=== PATIENT | female | born 1975 | race Caucasian/White ===

== ENCOUNTER → 2022-09-05 07:42 | Outpatient (REF) | payer OTHER, SELFPAY ==
--- NOTE | 2022-09-05 07:50 | CA_ITS ---
Transthoracic Echocardiogram Patient (Last, First, Middle): Keisha Lazaro, Gender: Female Date of : 1975 Age: 46 Procedure Date: 09/05/2022 Procedure Type: Transthoracic Echocardiogram Location: OP Height: 157.48 cm Weight: 58.97 kg BSA: 1.59 m2 Heart Rate: 74 bpm BP: 112 / 60 mmHg Roll Up Guider Operator: SB Referring MD: Jorge Chen MD Dental Instrument Maker: Burton Bullock MD Symptoms: R06.00 PAROXYSMAL NOCTURNAL DYSPNEA Study Quality: Adequate ECG Rhythm: Sinus Conclusions: - Essentially normal study Findings Procedure Information The quality of the study was technically difficult. The study quality is limited by lung artifact. Left Ventricle Normal left ventricular size, thickness, and systolic function. The visually estimated ejection fraction is between 60-65%. Spectral Doppler is indicative of a normal filling pattern. Right Ventricle Normal right ventricular cavity size and systolic function. Atria Both atria are normal in size. There is no evidence of interatrial shunt. Aortic Valve Normal aortic valve structure and function. There is no aortic valve stenosis. There is no aortic valve regurgitation. Mitral Valve Normal mitral valve structure and function. There is trace mitral valve regurgitation. There is no mitral valve stenosis. Pulmonic Valve The pulmonic valve is likely normal. Tricuspid Valve Normal tricuspid valve structure. There is trace tricuspid valve regurgitation. The right ventricular systolic pressure is normal. The right ventricular systolic pressure is 13 mmHg. Normal right atrial pressure. There is no evidence of pulmonary hypertension. Great Vessels All visible segments of the aorta are normal in size. The pulmonary artery was not well visualized. Venous The inferior vena cava is normal in size and collapses greater than 50% with inspiration. Pericardium/Pleural There is no evidence of pericardial effusion. Prior Study Comparison No prior study available for comparison. Measurements 2D Linear Measurements IVSd: 0.60 0.6-0.9/0.6-1.0 cm LVIDd: 3.94 3.9-5.3/4.2-5.9 cm LVIDd Index: 2.48 2.4-3.2/2.2-3.1 cm/m2 LVIDs: 2.71 2.0-3.6 cm LVPWd: 0.62 0.7-1.1 cm LA Diam: 3.00 2.7-3.8/3.0-4.0 cm LAIDs Index: 1.89 1.5-2.3 cm/m2 LV Mass: 79.11 67-162/88-224 g LV Mass Index: 49.75 43-95/49-115 g/m2 LVOT Diam: 2.00 3.0+(-)1.3 cm 2D Systolic Function EF 4C: 66.20 >55% Mitral Valve MV Pk E: 0.92 MV PK A: 0.59 MV Decel Time: 104.00 E/A: 1.60 E'Lateral: 14.10 E'Medial: 7.94 E/E' Med: 11.50 E/E' Lat: 6.50 PHT: 30.00 MVA PHT: 7.33 Decel [place]: 8.85 Aortic Valve AoV Pk Natalio: 1.00 AoV Pk Grad: 4.00 SHOBHA: 2.93 LVOT LVOT Pk Natalio: 0.91 LVOT Mn Natalio: 0.61 LVOT VTI: 0.19 LVOT Pk Grad: 3.00 LVOT Mn Grad: 2.00 LVOT Diam: 2.00 LVOT Area: 3.14 Diastolic Function MV Pk E: 0.92 MV Pk A: 0.59 E/A: 1.60 E'Medial: 7.94 E/E' Med: 11.50 E' Laterial: 14.10 E/E' Lat: 6.50 Right Ventricle TAPSE (mm): 19.10 TVS' Natalio: 11.60 Tricuspid Valve TR Pk Natalio: 1.59 TR Pk Grad: 10.00 RA Press: 3.00 RVSP: 13.00 Great Vessels Aorta Sinus of Valsalva: 2.70 2.0-3.5 cm Ao Asc: 3.00 2.1-3.4 cm Pulmonary Veins Pulm Vein S/D 2.00 Pulmonary Valve PV Pk Natalio: 0.77 Peak PV Grad: 2.00 Updated in Other Vendor System with Status of Final Burton Bullock MD electronically signed on 09/05/2022 2:46:52 PM with status of Final
== END ==
LOC: HO.CARD 07:42
PROVIDERS: PCP Family Medicine; Visit Provider Family Medicine
DX: R06.00 Dyspnea, unspecified (principal)
CPT/HCPCS: 93306

== ENCOUNTER → 2022-09-05 07:50 | Outpatient (BNV) | payer OTHER, SELFPAY | PROVIDERS: PCP Family Medicine; Visit Provider Internal Medicine Cardiovascular Disease | DX: R06.00 Dyspnea, unspecified (principal) | CPT/HCPCS: 93306 ==